=== PATIENT | male | born 1985 | race Caucasian/White ===

== ENCOUNTER 2022-07-24 13:25 | Inpatient (IN) | payer OTHER ==
--- NOTE | 2022-07-24 14:11 | ED ---
Psych HPI - General Chief Complaint: Psychiatric Symptoms Stated Complaint: Mental Health Time Seen by Provider: 07/24/22 13:47 Source: patient, family, RN notes reviewed Mode of arrival: ambulatory Limitations: no limitations - History of Present Illness Initial Comments: 37-year-old male presents emergency Department with family for psychiatric evaluation. Patient was unsure why he is being brought here. Patient does have ordered petition and which there multiple reasons complaints with family patient himself has no complaints denies any physical complaints denies any history of psychiatric disorders. Denies alcohol abuse does admit to marijuana use. - Related Data Home Medications Medication Instructions Recorded Confirmed No Known Home Medications 07/24/22 07/24/22 Allergies Allergy/AdvReac Type Severity Reaction Status Date / Time No Known Allergies Allergy Verified 07/24/22 15:22 Review of Systems ROS Statement: Those systems with pertinent positive or pertinent negative responses have been documented in the HPI. ROS Other: All systems not noted in ROS Statement are negative. Past Medical History Past Medical History: No Reported History History of Any Multi-Drug Resistant Organisms: None Reported Past Surgical History: No Surgical Hx Reported Past Psychological History: No Psychological Hx Reported Smoking Status: Never smoker Past Alcohol Use History: None Reported Past Drug Use History: None Reported General Exam Limitations: no limitations General appearance: alert, in no apparent distress Head exam: Present: atraumatic, normocephalic, normal inspection Eye exam: Present: normal appearance, PERRL, EOMI. Absent: scleral icterus, conjunctival injection, periorbital swelling ENT exam: Present: normal exam, normal oropharynx, mucous membranes moist Neck exam: Present: normal inspection, full ROM. Absent: tenderness, meningismus, lymphadenopathy Respiratory exam: Present: normal lung sounds bilaterally. Absent: respiratory distress, wheezes, rales, rhonchi, stridor Cardiovascular Exam: Present: regular rate, normal rhythm, normal heart sounds. Absent: systolic murmur, diastolic murmur, rubs, gallop, clicks GI/Abdominal exam: Present: soft, normal bowel sounds. Absent: distended, tenderness, guarding, rebound, rigid Neurological exam: Present: alert, oriented X3 Skin exam: Present: warm, dry, intact, normal color. Absent: rash Course Vital Signs 07/24/22 07/24/22 13:35 13:50 Temperature 97.5 F L 97.4 F L Pulse Rate 82 91 Respiratory 16 18 Rate Blood Pressure 101/76 116/78 O2 Sat by Pulse 96 100 Oximetry Medical Decision Making - Medical Decision Making Was pt. sent in by a medical professional or institution ([facility], SOFTWARE SUPPORT REPRESENTATIVE, urgent care, hospital, or half-way...) When possible be specific @ -No Did you speak to anyone other than the patient for history (EMS, parent, family, police, friend...)? What history was obtained from this source @ -Family who brought the patient in with court ordered petition Did you review nursing and triage notes (agree or disagree)? Why? @ -I reviewed and agree with nursing and triage notes Were old charts reviewed (outside hosp., previous admission, EMS record, old EKG, old radiological studies, urgent care reports/EKG's, half-way records)? Report findings @ -No old charts were reviewed Differential Diagnosis (chest pain, altered mental status, abdominal pain women, abdominal pain men, vaginal bleeding, weakness, fever, dyspnea, syncope, hea dache, dizziness, GI bleed, back pain, seizure, CVA, palpatations, mental health, musculoskeletal)? @ -Acute psychosis, schizophrenia, bipolar disorder EKG interpreted by me (3pts min.). @ -None X-rays interpreted by me (1pt min.). @ -None done CT interpreted by me (1pt min.). @ -None done U/S interpreted by me (1pt. min.). @ -None done What testing was considered but not performed or refused? (CT, X-rays, U/S, labs)? Why? @ -None What meds were considered but not given or refused? Why? @ -None Did you discuss the management of the patient with other professionals (professionals i.e. [facility], SOFTWARE SUPPORT REPRESENTATIVE, lab, RT, psych nurse, school social worker, burn nurse, teacher, commercial escrow officer, shoe parts caser)? Give summary @ -EPS to evaluate the patient and recommend inpatient treatment Was smoking cessation discussed for >3mins.? @ -No Was critical care preformed (if so, how long)? @ -No Were there social determinants of health that impacted care today? How? (Homelessness, low income, unemployed, alcoholism, drug addiction, transport ation, low edu. Level, literacy, decrease access to med. care, fci, rehab)? @ -No Was there de-escalation of care discussed even if they declined (Discuss DNR or withdrawal of care, Hospice)? DNR status @ -No What co-morbidities impacted this encounter? (DM, HTN, Smoking, COPD, CAD, Cancer, CVA, ARF, Chemo, Hep., AIDS, mental health diagnosis, sleep apnea, morbid obesity)? @ -None Was patient admitted / discharged? Hospital course, mention meds given and route, prescriptions, significant lab abnormalities, going to OR and other pertinent info. @ -Patient evaluated by EPS and recommend inpatient treatment psychiatric Undiagnosed new problem with uncertain prognosis? @ -No Drug Therapy requiring intensive monitoring for toxicity (Heparin, Nitro, Insulin, Cardizem)? @ -No Were any procedures done? @ -No Diagnosis/symptom? @ -Psychosis Acute, or Chronic, or Acute on Chronic? @ -Acute Uncomplicated (without systemic symptoms) or Complicated (systemic symptoms)? @ -uncomplicated Side effects of treatment? @ -No Exacerbation, Progression, or Severe Exacerbation? @ -No Poses a threat to life or bodily function? How? (Chest pain, [place], NH, pneumonia, PE, COPD, DKA, ARF, appy, cholecystitis, CVA, Diverticulitis, Homicidal, Suicidal, threat to staff... and all critical care pts) @ -No - Lab Data Lab Results 07/24/22 Range/Units 17:51 Coronavirus (PCR) Not Detected (Not Detectd) Disposition Clinical Impression: Acute psychosis Disposition: TRANSFER TO PSYCH HOSP/UNIT Time of Disposition: 07:01
[2022-07-24] MEDS ORDERED: LORazepam 1 MG TAB PO PRN (20:47)
[2022-07-24] MEDS ORDERED: MAG HYDROX/AL HYDROX/SIMETH 30 ML CUP PO PRN (20:47)
[2022-07-24] MEDS ORDERED: IBUPROFEN 600 MG TAB PO PRN (20:47)
[2022-07-24] MEDS ORDERED: HALOPERIDOL LACTATE 5 MG/ML 1 ML VIAL IM PRN (20:47)
[2022-07-24] MEDS ORDERED: LORazepam 2 MG/ML INJ IM PRN (20:47)
[2022-07-24] MEDS ORDERED: MAGNESIUM HYDROXIDE 2,400 MG/10 ML CUP PO PRN (20:47)
[2022-07-24] MEDS ORDERED: ACETAMINOPHEN TAB 325 MG TAB PO PRN (20:47)
[2022-07-24] MEDS ORDERED: haloperidoL 5 MG TAB PO PRN (20:47)
--- NOTE | 2022-07-25 02:57 | P.PN ---
Progress Note - Text Progress Note Date: 07/25/22 Attempted to see the patient in the mental health unit at 1999 on 07/24. The patient refused to be seen or be evaluated.
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
--- NOTE | 2022-07-25 23:32 | P.CONS ---
History of Present Illness - Reason for Consult Consult date: 07/25/22 - History of Present Illness The patient is a 37-year-old male who was brought to the emergency room by his family for psychiatric evaluation. The patient was petitioned by his family for multiple reasons. He was admitted to the mental health unit where he was seen and evaluated. Patient states that he does not know why he is in the mental health unit. He denied any physical complaints at time of interview however. The patient denied experiencing chest discomfort, short of breath, fever, chills, cough, nausea, vomiting, abdominal pain, diarrhea. He admits to recreational marijuana use but denied alcohol or additional substance use. Review of systems: Pertinent positives and negatives as discussed in HPI, a complete review of systems was performed and all other systems are negative. Physical examination: General: non toxic, no distress, appears at stated age, normal weight Derm: no unusual rashes/lesions, no unusual ecchymoses, warm, dry Head: atraumatic, normocephalic, symmetric Eyes: EOMI, no lid lag, anicteric sclera ENT: Nose and ears atraumatic, no thrush, no pharyngeal erythema Neck: trachea midline, supple Mouth: no lip lesion, mucus membranes moist Cardiovascular: S1S2 reg, no murmur, no edema Lungs: CTA bilateral, no rhonchi, no rales , no accessory muscle use Abdominal: soft, nontender to palpation, no guarding Ext: no gross muscle atrophy, no contractures, Neuro: No gross focal neuro deficits noted Psych: Alert, oriented, appropriate affect Assessment: Marijuana abuse Psychosis Imaging: None performed Data Review: Coronavirus PCR testing negative Plan: Advise on the importance of cessation for marijuana use Defer management of psychosis to primary psychiatry service Thank you for allowing us to participate in the care of this patient. We will follow peripherally. Do not hesitate to contact us with questions. Someone can be reached from the [facility] hospitalist group at all hours of the day at [phone]. Past Medical History Past Medical History: No Reported History History of Any Multi-Drug Resistant Organisms: None Reported Past Surgical History: No Surgical Hx Reported Past Psychological History: No Psychological Hx Reported Smoking Status: Never smoker Past Alcohol Use History: None Reported Past Drug Use History: None Reported - Past Family History Mother Family Medical History: COPD Medications and Allergies Home Medications Medication Instructions Recorded Confirmed Type No Known Home Medications 07/24/22 07/24/22 History Allergies Allergy/AdvReac Type Severity Reaction Status Date / Time No Known Allergies Allergy Verified 07/24/22 15:22
[2022-07-26] MEDS ORDERED: LORazepam 2 MG/ML INJ IM PRN (10:42)
[2022-07-26] MEDS ORDERED: LORazepam 1 MG TAB PO PRN (10:42)
--- NOTE | 2022-07-26 10:45 | P.PN ---
Progress Note - Text Progress Note Date: 07/26/22 Interval History: Patient was seen lying in his bed today and was approached by a global technical writer. Patient turned towards global technical writer acknowledged him. Classification Analyst introduced himself and asked the patient wanted to speak today in the office. Patient was appeared to be fairly cooperative however stated "no thank you Im ok". global technical writer again clarrified that it was psychiatric care and follow up and patient once again refused to speak to global technical writer politely and stated "No Im ok I really dont want to talk today" and then proceeded to turn away from global technical writer in his bed. he did not answer any other questions. Mental Status Exam: General Appearance: Patient appears to be laying in bed, wearing a hooded sweatshirt, stated age is alert, pleasant, poor eye contact. Behavior: [Patient is calmly in bed, pleasant. Speech: Patient's speech is fluent and nonpressured. [place] Mood/Affect: Unable to assess Suicidality/Homicidality: Unable to assess Perceptions: Unable to assess Though content/process: [place], poverty of content. Dismissive. Memory and concentration: Unable to assess Judgment and insight: Poor Assessment Psychosis unspecified, rule out substance-induced psychotic disorder Plan: -Patient continues to meet criteria for inpatient psychiatric admission for symptom stabilization and safety. Patient has signed adult voluntary form and medication consent and was placed in patient's chart. -Medications: Start paliperidone by mouth 3 mg daily at bedtime for psychosis. -When necessary Ativan and Haldol for agitation/aggression. -NRT - nicotine patch -SW on board for discharge planning. Encouraged the patient to participate in milieu. patient has signed AMA and will be up on 07/28. likely need to file for involuntary if patient is refusing medications and continues to demonstrate poor insiht and judgment along with psychotic features.
[2022-07-26] MEDS: PALIPERIDONE 3 MG TAB.ER.24 PO SCH (21:00)
--- NOTE | 2022-07-27 11:28 | P.PN ---
Progress Note - Text Progress Note Date: 07/27/22 Interval History: Patient was seen lying in his bed this morning and was approached by underwriter. Patient acknowledged him and was agreeable to speak to underwriter in the office today. Patient was endorsing paranoid delusions of being "framed for murder" and states that the police have also been "poisoning me". He states that he does not trust the police because he believes that they have been poisoning his drinks whenever he goes out. He believes that he is in the hospital because it is a "safe place" away from other people and does not believe that he needs mental health treatment. He refused paliperidone last night because he believes he does not need psychiatric treatment. He states that he slept fairly last night. He is denying any auditory or visual hallucinations. Denying any suicidal or homicidal ideations intent or plan. Mental Status Exam: General Appearance: Patient appears to be laying in bed, wearing a hooded sweatshirt, stated age is alert, pleasant, improving eye contact. Behavior: [Patient is calmly in bed, pleasant. Paranoid. Speech: Patient's speech is fluent and nonpressured. [place] Mood/Affect: He claims that his mood is "fine" affect is incongruent. Suicidality/Homicidality: Denies Perceptions: Denies. Though content/process: [place], endorsing paranoid delusions. Memory and concentration: Alert and oriented 3, fair attention span. Judgment and insight: Poor Assessment Psychosis unspecified, rule out substance-induced psychotic disorder Plan: -Patient continues to meet criteria for inpatient psychiatric admission for symptom stabilization and safety. Patient has signed adult voluntary form and medication consent and was placed in patient's chart. -Medications: paliperidone by mouth 3 mg daily at bedtime for psychosis. Patient is an refusing this. -When necessary Ativan and Haldol for agitation/aggression. -NRT - nicotine patch -SW on board for discharge planning. Encouraged the patient to participate in milieu. patient has signed AMA and will be up on 07/28. Will be filing 2 certificates and a petition today for involuntary process.
[2022-07-27] MEDS: PALIPERIDONE 3 MG TAB.ER.24 PO SCH (21:25)
--- NOTE | 2022-07-28 11:54 | P.PN ---
Progress Note - Text Progress Note Date: 07/28/22 Interval History: Patient was seen lying in his bed this morning and was approached by magnetic tape typewriter operator. Patient was agreeable to speak to magnetic tape typewriter operator however wanted to speak in his room today. He continues to demonstrate very poor insight and judgment. Continues to endorse paranoia about his mother "lying" on the petition to keep him in the hospital. He states that "it's all true and was followed by helicopters and people were trying to frame me for murder". He continues to endorse suspiciousness and also spoke about possibly eloping from the unit as he can "run really fast and get away from everybody". He kicked the door yesterday and almost eloped from the South wing of the unit. Patient received Haldol and Ativan by mouth yesterday as a when necessary. He is denying any depression or anxiety at this time. He continues to be impulsive and poor insight and judgment. Poor reality testing. We spoke more about the legal process and he continues to refuse medications and does not believe he needs mental health treatment. He states that he slept fairly last night. He is denying any aud itory or visual hallucinations. Denying any suicidal or homicidal ideations intent or plan. She remains uninterested in going to groups. Mental Status Exam: General Appearance: Patient appears to be laying in bed, wearing a hooded sweatshirt, stated age is alert, attempts to cooperate, improving eye contact. Behavior: [Patient is calmly in bed, pleasant. Paranoid. Speech: Patient's speech is fluent and nonpressured. [place] Mood/Affect: He claims that his mood is "fine" affect is incongruent. Suicidality/Homicidality: Denies Perceptions: Denies. Though content/process: [place], endorsing paranoid delusions. Memory and concentration: Alert and oriented 3, fair attention span. Judgment and insight: Poor Assessment Psychosis unspecified, rule out substance-induced psychotic disorder Plan: -Patient continues to meet criteria for inpatient psychiatric admission for symptom stabilization and safety. Patient has signed adult voluntary form and medication consent and was placed in patient's chart. -Medications: paliperidone by mouth 3 mg daily at bedtime for psychosis. Patient is an refusing this. -When necessary Ativan and Haldol for agitation/aggression. -NRT - nicotine patch -SW on board for discharge planning. Encouraged the patient to participate in milieu. patient has signed AMA and will be up on 07/28. filed for involuntary process on 07/27, currently awaiting deferral and court hearing date.
[2022-07-29] MEDS: PALIPERIDONE 3 MG TAB.ER.24 PO SCH ×2 (08:18→20:21)
--- NOTE | 2022-07-29 18:26 | P.PN ---
Progress Note - Text Progress Note Date: 07/29/22 Interval History: Patient was seen lying in his bed this morning and was approached by automotive service writer. Patient states that he believes that the mental health system is nefarious and trying to corner him. He reports that he would like to pursue a trial by jury. He states that he has been feeling threatened and that an FBI agent came to his home. Patient becomes guarded after stating this and says he does not want to discuss any further. He says "that's for the court ". He says that his mood is currently "really great ". He is denying any depression or anxiety at this time. He continues to be impulsive and poor insight and judgment. Poor reality testing. We spoke more about the legal process and he continues to refuse medications and does not believe he needs mental health treatment. He states that he slept fairly last night. He is denying any auditory or visual hallucinations. Denying any suicidal or homicidal ideations intent or plan. He remains uninterested in going to groups and says "I am an introvert ". Mental Status Exam: General Appearance: Patient appears to be laying in bed, wearing a hooded sweatshirt, stated age is alert, attempts to cooperate, improving eye contact. Behavior: Patient is calmly in bed, pleasant. Speech: Patient's speech is fluent and nonpressured. [place] Mood/Affect: He claims that his mood is "really great" affect is incongruent. Suicidality/Homicidality: Denies Perceptions: Denies. Though content/process: [place], endorsing paranoid delusions. Memory and concentration: Alert and oriented 3, fair attention span. Judgment and insight: Poor Assessment Psychosis unspecified, rule out substance-induced psychotic disorder Plan: -Patient continues to meet criteria for inpatient psychiatric admission for symptom stabilization and safety. -Medications: paliperidone by mouth 3 mg daily at bedtime for psychosis. Patient is refusing this. -When necessary Ativan and Haldol for agitation/aggression. -NRT - nicotine patch -SW on board for discharge planning. Encouraged the patient to participate in milieu. patient has signed AMA and will be up on 07/28. filed for involuntary process, currently awaiting deferral and court hearing date.
--- NOTE | 2022-07-30 14:48 | P.PN ---
Progress Note - Text Progress Note Date: 07/30/22 Interval History: Patient was seen lying in his bed this morning and was approached by television writer. He states that he is doing "really good ". He does not believe that he needs to be hospitalized and does not display any insight into condition including up to hospitalization. Patient insists that FBI was at his door and says that he does not want to discuss this further because "it will only look crazy ". He is denying any depression or anxiety at this time. Poor reality testing. He states that he does not believe he needs to be on any medications because he does not believe in medications. He states he does not take any medications at home. He states that he slept fairly last night. He reports fair appetite. He continues to be isolative in his room. He is denying any auditory or visual hallucinations. Denying any suicidal or homicidal ideations intent or plan. He denies other forms of paranoia currently. Mental Status Exam: General Appearance: Patient appears to be laying in bed, wearing a hooded sweatshirt, stated age is alert, attempts to cooperate, improving eye contact. Behavior: Patient is calmly in bed, pleasant. Speech: Patient's speech is fluent and nonpressured. [place] Mood/Affect: He claims that his mood is "really good" affect is elevated Suicidality/Homicidality: Denies Perceptions: Denies. Though content/process: [place], endorsing paranoid delusions. Memory and concentration: Alert and oriented 3, fair attention span. Judgment and insight: Poor Assessment Psychosis unspecified, rule out substance-induced psychotic disorder Plan: -Patient continues to meet criteria for inpatient psychiatric admission for symptom stabilization and safety. -Medications: paliperidone by mouth 3 mg daily at bedtime for psychosis. Patient is refusing this. -When necessary Ativan and Haldol for agitation/aggression. -NRT - nicotine patch -SW on board for discharge planning. Encouraged the patient to participate in milieu. patient has signed AMA and will be up on 07/28. filed for involuntary process, currently awaiting deferral and court hearing date.
[2022-07-30] MEDS: PALIPERIDONE 3 MG TAB.ER.24 PO SCH (21:16)
--- NOTE | 2022-07-31 11:16 | P.PN ---
Progress Note - Text Progress Note Date: 07/31/22 Interval History: Patient was seen lying in his bed this morning and was approached by sports writer. Patient got up out of bed and was agreeable to screenplay writer in his room today. He states that he has still been refusing medications and does not believe he needs psychiatric medications. He was fairly concrete, did not ask any questions. He continues to focus on discharge and have very poor insight and judgment. Continues to demonstrate poor reality testing. He states that he slept fairly last night, denied any complaints. We spoke about the legal process in speaking with his attorney at law which is okay with. He is denying any auditory or visual hallucinations. Denying any suicidal or homicidal ideations intent or plan. he remains uninterested in going to groups. Mental Status Exam: General Appearance: Patient appears to be laying in bed, wearing a hooded sweatshirt, stated age is alert, attempts to cooperate, fair eye contact. Behavior: [Patient is calmly in bed, pleasant. Paranoid, improving mildly Speech: Patient's speech is fluent and nonpressured. [place] Mood/Affect: He claims that his mood is "fine" affect is incongruent. Suicidality/Homicidality: Denies Perceptions: Denies. Though content/process: [place], endorsing paranoid delusions. Memory and concentration: Alert and oriented 3, fair attention span. Judgment and insight: Poor Assessment Psychosis unspecified, rule out substance-induced psychotic disorder Plan: -Patient continues to meet criteria for inpatient psychiatric admission for symptom stabilization and safety. Patient has signed adult voluntary form and medication consent and was placed in patient's chart. -Medications: paliperidone by mouth 3 mg daily at bedtime for psychosis. Patient is an refusing this. -When necessary Ativan and Haldol for agitation/aggression. -NRT - nicotine patch -SW on board for discharge planning. Encouraged the patient to participate in milieu. patient has signed AMA and will be up on 07/28. filed for involuntary process on 07/27, currently awaiting deferral set for today and court hearing date set for 08/02.
[2022-07-31] MEDS: PALIPERIDONE 3 MG TAB.ER.24 PO SCH (20:13)
--- NOTE | 2022-08-01 12:03 | P.PN ---
Progress Note - Text Progress Note Date: 08/01/22 Interval History: Patient was seen lying in his bed this morning and was approached by verse writer. Patient got up out of bed and was agreeable to brief writer in his room today. Patient has continuing to be refusing medications and does not believe he needs psychiatric medications. He states "I've never needed medications in my life". He continues to focus on discharge and today asks about getting a "secondary evaluation", he has very poor insight and judgment. Continues to demonstrate poor reality testing. We spoke about the court process for tomorrow which she is okay with. He states that he slept fairly last night, denied any complaints. He is denying any auditory or visual hallucinations. Denying any suicidal or homicidal ideations intent or plan. he remains uninterested in going to groups. Mental Status Exam: General Appearance: Patient appears to be laying in bed, wearing a street clothing, stated age is alert, attempts to cooperate, fair eye contact. Behavior: [Patient is calmly in bed, pleasant. Paranoid, improving mildly Speech: Patient's speech is fluent and nonpressured. [place] Mood/Affect: He claims that his mood is "fine" affect is incongruent. Suicidality/Homicidality: Denies Perceptions: Denies. Though content/process: [place], endorsing paranoid delusions. Memory and concentration: Alert and oriented 3, fair attention span. Judgment and insight: Poor Assessment Psychosis unspecified, rule out substance-induced psychotic disorder Plan: -Patient continues to meet criteria for inpatient psychiatric admission for symptom stabilization and safety. Patient has signed adult voluntary form and medication consent and was placed in patient's chart. -Medications: paliperidone by mouth 3 mg daily at bedtime for psychosis. Patient is an refusing this. -When necessary Ativan and Haldol for agitation/aggression. -NRT - nicotine patch -SW on board for discharge planning. Encouraged the patient to participate in milieu. patient has signed AMA and will be up on 07/28. filed for involuntary process on 07/27, court hearing date set for 08/02.
[2022-08-01] MEDS: PALIPERIDONE 3 MG TAB.ER.24 PO SCH (20:47)
--- NOTE | 2022-08-02 10:26 | P.PN ---
Progress Note - Text Progress Note Date: 08/02/22 Interval History: Patient was seen lying in his bed this morning and was approached by conventional underwriter to be interviewed at the bedside. Patient continues to isolate mainly in his room, continues to have a mildly disheveled appearance. He was fairly concrete and constricted. He continues to state that he does not need psychiatric medications at this time. Continues to be fairly superficial, he has very poor insight and judgment. Continues to demonstrate poor reality testing. We spoke for about the court process for tomorrow which she is okay with speaking with the cabinetmaker supervisor and his collections attorney today. He states that he slept fairly last night, denied any overnight complaints. He is denying any auditory or visual hallucinations. Denying any suicidal or homicidal ideations intent or plan. he remains uninterested in going to groups. Mental Status Exam: General Appearance: Patient appears to be laying in bed, wearing a street clothing, stated age is alert, attempts to cooperate, fair eye contact. Behavior: [Patient is calmly in bed, pleasant. Paranoid, improving mildly Speech: Patient's speech is fluent and nonpressured. [place] Mood/Affect: He claims that his mood is "ok" affect is incongruent. Suicidality/Homicidality: Denies Perceptions: Denies. Though content/process: [place], endorsing paranoid delusions. Memory and concentration: Alert and oriented 3, fair attention span. Judgment and insight: Poor Assessment Psychosis unspecified, rule out substance-induced psychotic disorder Plan: -Patient continues to meet criteria for inpatient psychiatric admission for symptom stabilization and safety. Patient has signed adult voluntary form and medication consent and was placed in patient's chart. -Medications: paliperidone by mouth 3 mg daily at bedtime for psychosis. Patient is refusing this. -When necessary Ativan and Haldol for agitation/aggression. -NRT - nicotine patch -SW on board for discharge planning. Encouraged the patient to participate in milieu. patient has signed AMA and will be up on 07/28. filed for involuntary process on 07/27, court hearing date set for 08/02.
[2022-08-03] MEDS: PALIPERIDONE 3 MG TAB.ER.24 PO SCH ×2 (04:31→21:00)
--- NOTE | 2022-08-03 13:03 | P.PN ---
Progress Note - Text Progress Note Date: 08/03/22 Interval History: Patient was seen lying in his bed this morning and was approached by gag writer to be interviewed at the bedside. Patient continues to isolate mainly in his room. He was directable during conversation. continues to have a mildly disheveled appearance. He continues to state that he does not need psychiatric medications at this time. We reflected back on the court hearing and states that he has not heard when he will get an independent evaluation yet. Continues to be fairly schmidt perficial, he has very poor insight and judgment. Continues to demonstrate poor reality testing. He states that he slept fairly last night, denied any overnight complaints. He is denying any auditory or visual hallucinations. Denying any suicidal or homicidal ideations intent or plan. he remains uninterested in going to groups. Mental Status Exam: General Appearance: Patient appears to be laying in bed, wearing a street clothing, stated age is alert, attempts to cooperate, fair eye contact. Behavior: [Patient is calmly in bed, pleasant. Paranoid, improving mildly Speech: Patient's speech is fluent and nonpressured. [place] Mood/Affect: He claims that his mood is "fine" affect is incongruent. Suicidality/Homicidality: Denies Perceptions: Denies. Though content/process: [place], endorsing paranoid delusions. Memory and concentration: Alert and oriented 3, fair attention span. Judgment and insight: Poor Assessment Psychosis unspecified, rule out substance-induced psychotic disorder Plan: -Patient continues to meet criteria for inpatient psychiatric admission for symptom stabilization and safety. Patient has signed adult voluntary form and medication consent and was placed in patient's chart. -Medications: paliperidone by mouth 3 mg daily at bedtime for psychosis. Patient is refusing this. -When necessary Ativan and Haldol for agitation/aggression. -NRT - nicotine patch -SW on board for discharge planning. Encouraged the patient to participate in milieu. patient has signed AMA and will be up on 07/28. filed for involuntary process on 07/27, court hearing date took place on 08/02 and patient requested an independent evaluation to be done,currently awaiting this.
--- NOTE | 2022-08-04 11:35 | P.PN ---
Progress Note - Text Progress Note Date: 08/04/22 Interval History: Patient was seen lying in his bed this morning and was approached by production underwriter to be interviewed at the bedside. Patient continues to isolate mainly in his room and appears to have poor hygiene and grooming. He was directable during conversation today. He continues to state that he does not need psychiatric medications at this time and does not require hospitalization. claims he does not know when he will be getting a secondary evaluation yet. Continues to be fairly superficial, he has very poor insight and judgment. Continues to demonstrate poor reality testing. He states that he slept fairly last night, denied any overnight complaints. He is denying any auditory or visual hallucinations. Denying any suicidal or homicidal ideations intent or plan. he remains uninterested in going to groups. Mental Status Exam: General Appearance: Patient appears to be laying in bed, wearing a street clothing, stated age is alert, attempts to cooperate, fair eye contact. Behavior: [Patient is calmly in bed, pleasant. Paranoid, improving mildly Speech: Patient's speech is fluent and nonpressured. [place] Mood/Affect: He claims that his mood is "alright" affect is incongruent and constricted Suicidality/Homicidality: Denies Perceptions: Denies. Though content/process: [place], endorsing paranoid delusions. Memory and concentration: Alert and oriented 3, fair attention span. Judgment and insight: Poor Assessment Psychosis unspecified, rule out substance-induced psychotic disorder Plan: -Patient continues to meet criteria for inpatient psychiatric admission for symptom stabilization and safety. Patient has signed adult voluntary form and medication consent and was placed in patient's chart. -Medications: paliperidone by mouth 3 mg daily at bedtime for psychosis. Patient is refusing this -When necessary Ativan and Haldol for agitation/aggression. -NRT - nicotine patch -SW on board for discharge planning. Encouraged the patient to participate in milieu. patient has signed AMA and will be up on 07/28. filed for involuntary process on 07/27, court hearing date took place on 08/02 and patient requested an independent evaluation to be done,currently awaiting this. next court hearing date set for this sunday
[2022-08-04] MEDS: PALIPERIDONE 3 MG TAB.ER.24 PO SCH (20:44)
[2022-08-05] MEDS: PALIPERIDONE 3 MG TAB.ER.24 PO SCH (20:14)
[2022-08-06] MEDS: PALIPERIDONE 3 MG TAB.ER.24 PO SCH (20:20)
--- NOTE | 2022-08-06 20:26 | P.PN ---
Progress Note - Text Progress Note Date: 08/05/22 Interval history: Patient was seen in his room after he finished showering and was directable and agreeable to speak with health technical writer. He claims he has "no idea why I'm here", feels he does not need to be admitted. He reports good mood, appears polite. He reports good sleep and appetite. At this time patient denies any suicidal or homicidal ideations intent or plan. Denies any auditory or visual hallucinations. He is refusing medications. Mental status exam: General Appearance: Patient appears to be stated age is alert, directable, and cooperative. Behavior: No agitated behavior. Patient is calm and directable. Speech: Patient's speech is fluent and non-pressured. Mood/Affect: Mood is improving mildly, affect is congruent and constricted. Suicidality/Homicidality: Patient denies having any suicidal or homicidal ideation intent or plan. Perceptions: Patient denies any auditory or visual hallucinations. Though content/process: There is no evidence of any delusional thought content and thought process is linear and goal-directed. Memory and concentration: AOX3, grossly intact for the purposes of this session Judgment and insight: fair Assessment/Plan: Continue with current diagnosis. Patient continues to meet criteria for inpatient psychiatric admission for symptom stabilization and safety. Patient will be maintained on current psychotropic medication regimen, however he is refusing medications. Monitor for medication compliance and for any psychotropic medication side effects. Will continue to monitor ongoing response to treatment. Encouraged participation in milieu.
--- NOTE | 2022-08-06 20:29 | P.PN ---
Progress Note - Text Progress Note Date: 08/06/22 Interval history: Patient was seen in the [facility] socializing with peers and appears polite on assessment. He claims he does not need mental health admission, is here because of a family member, was told he just needed to come here for blood work. He feels he does not need to be admitted. He reports good mood, sleep and appetite. He is polite and interacts respectfully with peers and staff. At this time patient denies any suicidal or homicidal ideation, intent or plan. Denies any auditory or visual hallucinations. He is refusing medications. Mental status exam: General Appearance: Patient appears to be stated age is alert, directable, and cooperative. Behavior: No agitated behavior. Patient is calm and directable. Speech: Patient's speech is fluent and non-pressured. Mood/Affect: Mood is improving mildly, affect is congruent and constricted. Suicidality/Homicidality: Patient denies having any suicidal or homicidal ideation intent or plan. Perceptions: Patient denies any auditory or visual hallucinations. Though content/process: There is no evidence of any delusional thought content and thought process is linear and goal-directed. Memory and concentration: AOX3, grossly intact for the purposes of this session Judgment and insight: fair Assessment/Plan: Continue with current diagnosis. Patient continues to meet criteria for inpatient psychiatric admission for symptom stabilization and safety. Patient will be maintained on current psychotropic medication regimen, however he is refusing medications. Monitor for medication compliance and for any psychotropic medication side effects. Will continue to monitor ongoing response to treatment. Encouraged participation in milieu.
--- NOTE | 2022-08-07 10:41 | P.PN ---
Progress Note - Text Progress Note Date: 08/07/22 Interval History: Patient was seen lying in his bed this morning and was approached by designer/writer to be interviewed at the bedside. Patient was just waking up from his sleep. He denies any complaints over the weekend and states that he slept okay last night. He states that he only goes to "the evening groups". Patient continues to isolate mainly in his room and appears to have poor hygiene and grooming. He was directable during conversation today. He continues to state that he does not need psychiatric medications at this time and does not require hospitalization. claims he does not know when he will be getting a secondary evaluation yet and we spoke about the court date set for sunday. Continues to be fairly superficial, he has very poor insight and judgment. Continues to demonstrate poor reality testing. He states that he slept fairly last night, denied any overnight complaints. He is denying any auditory or visual hallucinations. Denying any suicidal or homicidal ideations intent or plan. he remains uninterested in going to groups. Mental Status Exam: General Appearance: Patient appears to be laying in bed, wearing a street clothing, stated age is alert, attempts to cooperate, fair eye contact. Behavior: [Patient is calmly in bed, pleasant. Paranoid, improving mildly Speech: Patient's speech is fluent and nonpressured. [place] Mood/Affect: He claims that his mood is "alright" affect is incongruent and constricted Suicidality/Homicidality: Denies Perceptions: Denies. Though content/process: [place], endorsing paranoid delusions. Memory and concentration: Alert and oriented 3, fair attention span. Judgment and insight: Poor Assessment Psychosis unspecified, rule out substance-induced psychotic disorder Plan: -Patient continues to meet criteria for inpatient psychiatric admission for symptom stabilization and safety. Patient has signed adult voluntary form and medication consent and was placed in patient's chart. -Medications: paliperidone by mouth 3 mg daily at bedtime for psychosis. Patient is refusing this -When necessary Ativan and Haldol for agitation/aggression. -NRT - nicotine patch -SW on board for discharge planning. Encouraged the patient to participate in milieu. patient has signed AMA and will be up on 07/28. filed for involuntary pr ocess on 07/27, court hearing date took place on 08/02 and patient requested an independent evaluation to be done,currently awaiting this. next court hearing date set for this sunday
[2022-08-07] MEDS: PALIPERIDONE 3 MG TAB.ER.24 PO SCH (20:35)
--- NOTE | 2022-08-08 09:20 | P.PN ---
Progress Note - Text Progress Note Date: 08/08/22 Interval History: Patient was seen lying in his bed this morning and was approached by bid writer to be interviewed at the bedside. Patient was awoken from his sleep. He continues to state that he is doing "all right" and denied any depression or anxiety. He denies any complaints overnight and states that he slept okay last night. He states that he only goes to "the evening groups". Patient continues to isolate mainly in his room. He continues to minimize his need psychiatric medications at this time and does not require hospitalization. claims he does not know when he will be getting a secondary evaluation yet and we spoke about the court date set for tomorrow. Continues to be fairly superficial, he has very poor insight and judgment. Continues to demonstrate poor reality testing. He is denying any auditory or visual hallucinations. Denying any suicidal or homicidal ideations intent or plan. he remains uninterested in going to groups. Mental Status Exam: General Appearance: Patient appears to be laying in bed, wearing a street clothing, stated age is alert, attempts to cooperate, fair eye contact. Behavior: [Patient is calmly in bed, pleasant. Paranoid, improving mildly Speech: Patient's speech is fluent and nonpressured. [place] Mood/Affect: He claims that his mood is "ok" affect is incongruent and constricted Suicidality/Homicidality: Denies Perceptions: Denies. Though content/process: [place], endorsing paranoid delusions. Memory and concentration: Alert and oriented 3, fair attention span. Judgment and insight: Poor Assessment Psychosis unspecified, rule out substance-induced psychotic disorder Plan: -Patient continues to meet criteria for inpatient psychiatric admission for symptom stabilization and safety. Patient has signed adult voluntary form and medication consent and was placed in patient's chart. -Medications: paliperidone by mouth 3 mg daily at bedtime for psychosis. Patient is refusing this -When necessary Ativan and Haldol for agitation/aggression. -NRT - nicotine patch -SW on board for discharge planning. Encouraged the patient to participate in milieu. patient has signed AMA and will be up on 07/28. filed for involuntary process on 07/27, court hearing date took place on 08/02 and patient requested an independent evaluation to be done,currently awaiting this. next court hearing date set for this sunday
[2022-08-08] MEDS: PALIPERIDONE 3 MG TAB.ER.24 PO SCH (20:53)
--- NOTE | 2022-08-09 10:33 | P.PN ---
Progress Note - Text Progress Note Date: 08/09/22 Interval History: Patient was seen lying in his bed this morning and was approached by jingle writer to be interviewed at the bedside. Patient appeared to be sleeping and was awoken by jingle writer. He continues to be fairly concrete, attend and answer questions appropriately. He continues to state that he is doing ok denied any depression or anxiety. He denies any complaints overnight and states that he slept okay last night. Patient continues to isolate mainly in his room and is mainly visible in the evening time by staff. He continues to minimize his need psychiatric medications at this time has not been taking it and beleives he does not require hospitalization. we spoke about the secondary evaluation being scheduled for today. Continues to be fairly superficial, he has very poor insight and judgment. Continues to demonstrate poor reality testing. He is denying any auditory or visual hallucinations. Denying any suicidal or homicidal ideations intent or plan. he remains uninterested in going to groups. Mental Status Exam: General Appearance: Patient appears to be laying in bed, wearing a street clothing, stated age is alert, attempts to cooperate, fair eye contact. Behavior: [Patient is calmly in bed, superficial Speech: Patient's speech is fluent and nonpressured. [place] Mood/Affect: He claims that his mood is "fine" affect is incongruent and constricted Suicidality/Homicidality: Denies Perceptions: Denies. Though content/process: [place], endorsing paranoid delusions. Memory and concentration: Alert and oriented 3, fair attention span. Judgment and insight: Poor Assessment Psychosis unspecified, rule out substance-induced psychotic disorder Plan: -Patient continues to meet criteria for inpatient psychiatric admission for symptom stabilization and safety. Patient has signed adult voluntary form and medication consent and was placed in patient's chart. -Medications: paliperidone by mouth 3 mg daily at bedtime for psychosis. Patient is refusing this -When necessary Ativan and Haldol for agitation/aggression. -NRT - nicotine patch -SW on board for discharge planning. Encouraged the patient to participate in milieu. patient has signed AMA and will be up on 07/28. filed for involuntary process on 07/27, court hearing date took place on 08/02 and patient requested an independent evaluation to be done, is apparently scheduled to be done later on today.
[2022-08-09] MEDS: PALIPERIDONE 3 MG TAB.ER.24 PO SCH (22:33)
--- NOTE | 2022-08-10 10:17 | P.PN ---
Progress Note - Text Progress Note Date: 08/10/22 Interval History: Patient was seen lying in his bed this morning and was approached by communications writer to be interviewed at the bedside. Patient claims that he had a independent evaluation yesterday and states "I just answered some questions" in the states that he was not explained anything further. He continues to be fairly concrete and also vague, he did however answer questions appropriately. He continues to state that he is doing ok denied any depression or anxiety. He denies any complaints overnight and states that he slept okay last night. Patient continues to isolate mainly in his room and is mainly visible in the evening time by staff. Continues to be fairly superficial, he has very poor insight and judgment. Continues to demonstrate poor reality testing. He is denying any auditory or visual hallucinations. Denying any suicidal or homicidal ideations intent or plan. he remains uninterested in going to groups. Mental Status Exam: General Appearance: Patient appears to be laying in bed, wearing a street clothing, stated age is alert, attempts to cooperate, fair eye contact. Behavior: [Patient is calmly in bed, superficial Speech: Patient's speech is fluent and nonpressured. [place] Mood/Affect: He claims that his mood is "ok" affect is incongruent and constricted Suicidality/Homicidality: Denies Perceptions: Denies. Though content/process: [place], endorsing paranoid delusions. Memory and concentration: Alert and oriented 3, fair attention span. Judgment and insight: Poor Assessment: Psychosis unspecified, rule out substance-induced psychotic disorder Plan: -Patient continues to meet criteria for inpatient psychiatric admission for symptom stabilization and safety. Patient has signed adult voluntary form and medication consent and was placed in patient's chart. -Medications: paliperidone by mouth 3 mg daily at bedtime for psychosis. Patient is refusing this -When necessary Ativan and Haldol for agitation/aggression. -NRT - nicotine patch -SW on board for discharge planning. Encouraged the patient to participate in milieu. patient has signed AMA and will be up on 07/28. filed for involuntary process on 07/27, court hearing date took place on 08/02 and patient requested an independent evaluation which was completed on 08/09. currently awaiting next hearing date scheduled for 08/16.
[2022-08-10] MEDS: PALIPERIDONE 3 MG TAB.ER.24 PO SCH (21:09)
--- NOTE | 2022-08-11 13:52 | P.PN ---
Progress Note - Text Progress Note Date: 08/11/22 Subjective/subjective data: Patient was laying in bed in a dark room Patient was easily arousable Patient states that he is doing fine and it has any other questions He stated that he has a court date coming up soon When asked if he wanted to discuss anything in particular patient's no However when I tried to leave patient then acted surprised as to why we are not having this conversation He was reminded that he reported decline to talk anymore Patient then agreed that he does not want to talk anymore and went back to sleep Mental Status Exam: General Appearance: Patient appears to be laying in bed, stated age is alert, attempts to cooperate, fair eye contact. Behavior: [Patient is calmly in bed, superficial Speech: Patient's speech is fluent and nonpressured. [place] Mood/Affect: He claims that his mood is "ok" affect is incongruent and constricted Suicidality/Homicidality: Denies Perceptions: Denies. Though content/process: [place], endorsing paranoid delusions. Memory and concentration: Alert and oriented 3, fair attention span. Judgment and insight: Poor Assessment: Psychosis unspecified, rule out substance-induced psychotic disorder Plan: -Patient continues to meet criteria for inpatient psychiatric admission for symptom stabilization and safety. Patient has signed adult voluntary form and medication consent and was placed in patient's chart. -Medications: paliperidone by mouth 3 mg daily at bedtime for psychosis. She has refused to take this before -When necessary Ativan and Haldol for agitation/aggression. -NRT - nicotine patch -SW on board for discharge planning. Encouraged the patient to participate in milieu. patient has signed AMA and will be up on 07/28. filed for involuntary process on 07/27, court hearing date took place on 08/02 and patient requested an independent evaluation which was completed on 08/09. currently awaiting next hearing date scheduled for 08/16.
[2022-08-11] MEDS: PALIPERIDONE 3 MG TAB.ER.24 PO SCH (21:57)
--- NOTE | 2022-08-12 15:23 | P.PN ---
Subjective Progress Note Date: 08/12/22 Principal diagnosis: Assessment: Psychosis unspecified, rule out substance-induced psychotic disorder Subjective/objective data: The assessment on Sunday was very similar to the previous days discussion Patient again did not want to discuss any specific issues or problems and he declined to talk about any specific issues He is aware that he has a court date coming up Mental Status Exam: General Appearance: Patient appears to be laying in bed, stated age is alert, attempts to cooperate, fair eye contact. Behavior: [Patient is calmly in bed, superficial Speech: Patient's speech is fluent and nonpressured. [place] Mood/Affect: He claims that his mood is "ok" affect is incongruent and constricted Suicidality/Homicidality: Denies Perceptions: Denies. Though content/process: [place], endorsing paranoid delusions. Memory and concentration: Alert and oriented 3, fair attention span. Judgment and insight: Poor Assessment: Psychosis unspecified, rule out substance-induced psychotic disorder Plan: -Patient continues to meet criteria for inpatient psychiatric admission for symptom stabilization and safety. Patient has signed adult voluntary form and medication consent and was placed in patient's chart. -Medications: paliperidone by mouth 3 mg daily at bedtime for psychosis. She has refused to take this before -When necessary Ativan and Haldol for agitation/aggression. -NRT - nicotine patch -SW on board for discharge planning. Encouraged the patient to participate in milieu. patient has signed AMA and will be up on 07/28. filed for involuntary process on 07/27, court hearing date took place on 08/02 and patient requested an independent evaluation which was completed on 08/09. currently awaiting next hearing date scheduled for 08/16. Chris Salazar M.D. 08/12/2022 Objective - Vital Signs Vital signs: Vital Signs Temp 98.2 F 08/12/22 06:00 Pulse 71 08/12/22 06:00 Resp 16 08/12/22 06:00 BP 100/68 08/12/22 06:00 Pulse Ox 98 08/12/22 06:00 FiO2
[2022-08-12] MEDS: PALIPERIDONE 3 MG TAB.ER.24 PO SCH (22:07)
--- NOTE | 2022-08-13 11:59 | P.PN ---
Subjective Progress Note Date: 08/13/22 Principal diagnosis: Assessment: Psychosis unspecified, rule out substance-induced psychotic disorder Subjective/objective data: The assessment on Sunday was very similar to the previous days discussion Patient again did not want to discuss any specific issues or problems and he declined to talk about any specific issues He is aware that he has a court date coming up Patient reports that he is not much of her medication management and does not even take an aspirin and prefers not to take any medications He states that does things that he has any problems and does not need any treatment Mental Status Exam: General Appearance: Patient appears to be laying in bed, stated age is alert, attempts to cooperate, fair eye contact. Behavior: [Patient is calmly in bed, superficial Speech: Patient's speech is fluent and nonpressured. [place] Mood/Affect: He claims that his mood is "ok" affect is incongruent and constricted Suicidality/Homicidality: Denies Perceptions: Denies. Though content/process: [place], endorsing paranoid delusions. Memory and concentration: Alert and oriented 3, fair attention span. Judgment and insight: Poor Assessment: Psychosis unspecified, rule out substance-induced psychotic disorder Plan: -Patient continues to meet criteria for inpatient psychiatric admission for symptom stabilization and safety. Patient has signed adult voluntary form and medication consent and was placed in patient's chart. -Medications: paliperidone by mouth 3 mg daily at bedtime for psychosis. She has refused to take this before -When necessary Ativan and Haldol for agitation/aggression. -NRT - nicotine patch -SW on board for discharge planning. Encouraged the patient to participate in milieu. patient has signed AMA and will be up on 07/28. filed for involuntary process on 07/27, court hearing date took place on 08/02 and patient requested an independent evaluation which was completed on 08/09. currently awaiting next hearing date scheduled for 08/16. Chris Salazar M.D. 08/13/2022 Objective - Vital Signs Vital signs: Vital Signs Temp 97.1 F L 08/13/22 06:35 Pulse 63 08/13/22 06:35 Resp 14 08/13/22 06:35 BP 92/57 08/13/22 06:35 Pulse Ox 98 08/12/22 06:00 FiO2 Intake & Output 08/12/22 08/13/22 08/13/22 18:59 06:59 18:59 Weight 72.4 kg
[2022-08-13] MEDS: PALIPERIDONE 3 MG TAB.ER.24 PO SCH (21:37)
--- NOTE | 2022-08-14 10:24 | P.PN ---
Progress Note - Text Progress Note Date: 08/14/22 Interval History: Patient was seen lying in his bed this morning and was approached by play writer to be interviewed at the bedside. Patient appeared to have poor hygiene and grooming today. He states he will try to shower sometime today. Patient claims that he has not heard anything further about his independent evaluation, we spoke about the upcoming court date scheduled for Sunday. He continues to be fairly concrete and also vague, he did however answer questions appropriately. He continues to state that he is doing ok denied any depression or anxiety. He denies any complaints overnight and states that he slept fairly last night. Patient continues to isolate mainly in his room and is mainly visible in the evening time by staff. Continues to be fairly superficial, he has very poor insight and judgment. Continues to demonstrate poor reality testing. He is denying any auditory or visual hallucinations. Denying any suicidal or homicidal ideations intent or plan. he remains uninterested in going to groups. Mental Status Exam: General Appearance: Patient appears to be laying in bed, wearing a street clothing, stated age is alert, attempts to cooperate, fair eye contact. Behavior: [Patient is calmly in bed, superficial Speech: Patient's speech is fluent and nonpressured. [place] Mood/Affect: He claims that his mood is "alright" affect is incongruent and constricted Suicidality/Homicidality: Denies Perceptions: Denies. Though content/process: [place], endorsing paranoid delusions. Memory and concentration: Alert and oriented 3, fair attention span. Judgment and insight: Poor Assessment: Psychosis unspecified, rule out substance-induced psychotic disorder Plan: -Patient continues to meet criteria for inpatient psychiatric admission for symptom stabilization and safety. Patient has signed adult voluntary form and medication consent and was placed in patient's chart. -Medications: paliperidone by mouth 3 mg daily at bedtime for psychosis. Patient is refusing this -When necessary Ativan and Haldol for agitation/aggression. -NRT - nicotine patch -SW on board for discharge planning. Encouraged the patient to participate in milieu. patient has signed AMA and will be up on 07/28. filed for involuntary process on 07/27, court hearing date took place on 08/02 and patient requested an independent evaluation which was completed on 08/09. currently awaiting next hearing date scheduled for 08/16.
[2022-08-14] MEDS: PALIPERIDONE 3 MG TAB.ER.24 PO SCH (20:49)
--- NOTE | 2022-08-15 10:14 | P.PN ---
Progress Note - Text Progress Note Date: 08/15/22 Interval History: Patient was seen lying in his bed this morning and was approached by headline writer to be interviewed at the bedside. patients room had a foul odor coming from it. he claims that he has been washing clothes and showering hover looks unkempt. Patient appeared to have poor hygiene and grooming today we spoke about the upcoming court date scheduled for tomorrow. He continues to be fairly concrete and also vague, he did however answer questions appropriately. He continues to state that he is doing ok. He denies any complaints overnight and states that he slept fairly last night. Patient continues to isolate mainly in his room and is mainly visible in the evening time by staff. Continues to be fairly superficial, he has very poor insight and judgment. Continues to demonstrate poor reality testing. He is denying any auditory or visual hallucinations. Denying any suicidal or homicidal ideations intent or plan. he remains uninterested in going to groups. Mental Status Exam: General Appearance: Patient appears to be laying in bed, wearing a street clothing, stated age is alert, attempts to cooperate, fair eye contact. Behavior: [Patient is calmly in bed, superficial Speech: Patient's speech is fluent and nonpressured. [place] Mood/Affect: He claims that his mood is "ok" affect is incongruent and constricted Suicidality/Homicidality: Denies Perceptions: Denies. Though content/process: [place], endorsing paranoid delusions. Memory and concentration: Alert and oriented 3, fair attention span. Judgment and insight: Poor Assessment: Psychosis unspecified, rule out substance-induced psychotic disorder Plan: -Patient continues to meet criteria for inpatient psychiatric admission for symptom stabilization and safety. Patient has signed adult voluntary form and medication consent and was placed in patient's chart. -Medications: paliperidone by mouth 3 mg daily at bedtime for psychosis. Patient is refusing this -When necessary Ativan and Haldol for agitation/aggression. -NRT - nicotine patch -SW on board for discharge planning. Encouraged the patient to participate in milieu. patient has signed AMA and will be up on 07/28. filed for involuntary process on 07/27, court hearing date took place on 08/02 and patient requested an independent evaluation which was completed on 08/09. currently awaiting next hearing date scheduled for 08/16 at 930 am
[2022-08-15] MEDS: PALIPERIDONE 3 MG TAB.ER.24 PO SCH (20:54)
[2022-08-16 07:12] VITALS: RESP 16
--- NOTE | 2022-08-16 11:22 | P.PN ---
Progress Note - Text Progress Note Date: 08/16/22 Interval History: Patient was seen sitting in his bed this morning and was approached by group underwriter to be interviewed at the bedside. Patient apparently had consented to the order yesterday after reading the independent evaluation report. Patient did not proceed with court this morning. He took the paliperidone by mouth last night. He claims that he is doing a bit better today and claims that "she didn't really do much for me". He is agreeable to continue taking it on the unit. He continues to be fairly superficial with group underwriter and continues to have a poor judgment and insight. He continues to state that he is doing ok. We spoke about transitioning him on to the long-acting injection however patient was refusing today. He wanted to continue taking the pills. He denies any complaints overnight and states that he slept fairly last night. Poor hygiene and grooming. Continues to be fairly superficial, he has very poor insight and judgment. He is denying any auditory or visual hallucinations. Denying any suicidal or homicidal ideations intent or plan. Mental Status Exam: General Appearance: Patient appears to be laying in bed, wearing a street clothing, stated age is alert, attempts to cooperate, fair eye contact. Behavior: [Patient is calmly in bed, superficial Speech: Patient's speech is fluent and nonpressured. [place] Mood/Affect: He claims that his mood is "ok" affect is congruent and constricted, improving mildly Suicidality/Homicidality: Denies Perceptions: Denies. Though content/process: [place], endorsing paranoid delusions. Memory and concentration: Alert and oriented 3, fair attention span. Judgment and insight: Chronically Poor Assessment: schizophreniform Plan: -Patient continues to meet criteria for inpatient psychiatric admission for symptom stabilization and safety. Patient has signed adult voluntary form and medication consent and was placed in patient's chart. -Medications: Increase paliperidone by mouth 3 mg bid at bedtime for psychosis. will need to transition pt onto [facility] starting tomorrow to ensure compliance. -When necessary Ativan and Haldol for agitation/aggression. -NRT - nicotine patch -SW on board for discharge planning. Encouraged the patient to participate in milieu. patient has signed AMA and will be up on 07/28. filed for involuntary process on 07/27, court hearing date took place on 08/02 and patient requested an independent evaluation which was completed on 08/09. 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 will need to transition patient onto [facility] to help ensure compliance.
[2022-08-16] MEDS: PALIPERIDONE 3 MG TAB.ER.24 PO SCH ×2 (12:18→21:04)
[2022-08-17] MEDS: PALIPERIDONE 3 MG TAB.ER.24 PO SCH (08:44)
--- NOTE | 2022-08-17 10:23 | P.PN ---
Progress Note - Text Progress Note Date: 08/17/22 Interval History: Patient was seen sitting in his bed this morning and was approached by song writer to be interviewed at the bedside. Patient claims that he just finished taking a shower earlier. He appears to have improvement in his hygiene and grooming overall and claims that he also washes clothing's. She claims that he has been speaking with his mom however was fairly vague about what they talked about. He claims that he is okay with having the injection and we spoke more about that today to help ensure compliance. He also spoke more about discharge planning to observe him overnight and plan for likely tomorrow. He claims that he has been taking the medications and not reporting any side effects. States that he slept fairly last night. He has mildly improving insight and judgment however remains fairly superficial and limited. He is denying any auditory or visual hallucinations. Denying any suicidal or homicidal ideations intent or plan. Mental Status Exam: General Appearance: Patient appears to be laying in bed, wearing a street clothing, stated age is alert, attempts to cooperate, fair eye contact. Improving hygiene and grooming. Behavior: Patient is calmly in bed, superficial improving mildly Speech: Patient's speech is fluent and nonpressured. [place] Mood/Affect: He claims that his mood is "okay" affect is congruent and improving mildly Suicidality/Homicidality: Denies Perceptions: Denies Though content/process: [place], not endorsing paranoia today. No delusions. Memory and concentration: Alert and oriented 3, fair attention span. Judgment and insight: Chronically Poor, improving mildly Assessment: Schizophreniform Plan: -Patient continues to meet criteria for inpatient psychiatric admission for symptom stabilization and safety. Patient has signed adult voluntary form and medication consent and was placed in patient's chart. -Medications: decrease paliperidone to 3 mg at bedtime for psychosis for one more day then discontinue. ordered Perseris SQ 120 mg today to ensure compliance, next dose will be due in one month on 09/14/22 -When necessary Ativan and Haldol for agitation/aggression -NRT - nicotine patch -SW on board for discharge planning. Encouraged the patient to participate in milieu. patient has signed AMA and will be up on 07/28. filed for involuntary process on 07/27, court hearing date took place on 08/02 and patient requested an independent evaluation which was completed on 08/09. patient ended up consenting to order with his tax attorney on 08/15. will need to transition patient onto LEMUS to help ensure compliance ordered for today and will likely discharge tomorrow. song writer also spoke with patients mother over the phone Makenna who asked several questions, we discussed his care and treatment going forward and diagnoses. Mother was concerned about patients possible exposure to HIV and also that he refused blood work earlier on. we will reorder blood work for today and also HIV, nurse will ask patient to sign consent for it.
[2022-08-17 13:08] LABS: Basophils % (A) 0 %; Eosinophils # (A) 0.2 k/uL (0-0.7); Eosinophils % (A) 3 %; HCT 42.5 % (39.0-53.0); HGB 14.5 gm/dL (13.0-17.5); Lymphocytes # (A) 1.8 k/uL (1.0-4.8); Lymphocytes % (A) 26 %; MCH 30.3 pg (25.0-35.0); MCHC 34.1 g/dL (31.0-37.0); MCV 88.9 fL (80.0-100.0); Monocytes # (A) 0.5 k/uL (0-1.0); Monocytes % (A) 7 %; Neutrophils # (A) 4.3 k/uL (1.3-7.7); Neutrophils % (A) 63 %; Platelet Count 204 k/uL (150-450); RBC 4.78 m/uL (4.30-5.90); RDW 13.5 % (11.5-15.5); WBC 6.9 k/uL (3.8-10.6)
[2022-08-17 13:17] LABS: ALT 29 U/L (4-49); AST 25 U/L (17-59); African American GFR (CKD) >90 (>60 ml/min/1.73 sqM); Albumin 4.4 g/dL (3.5-5.0); Alkaline Phosphatase 60 U/L (38-126); Anion Gap 9 mmol/L; Blood Urea Nitrogen 17 mg/dL (9-20); Calcium 9.5 mg/dL (8.4-10.2); Carbon Dioxide 32 mmol/L (22-30); Chloride 100 mmol/L (98-107); Glucose 87 mg/dL (74-99); Non-African American GFR(CKD) >90 (>60 ml/min/1.73 sqM); Potassium 4.5 mmol/L (3.5-5.1); Sodium 141 mmol/L (137-145); Total Bilirubin 0.3 mg/dL (0.2-1.3)
[2022-08-17] MEDS ORDERED: risperiDONE 120 MG SYR (NO COST) PHARMACY STOCK SQ ONE (14:00)
[2022-08-17] MEDS ORDERED: PALIPERIDONE 3 MG TAB.ER.24 PO ONE (21:00)
[2022-08-18 07:04] VITALS: BP 97/55; PULSE 68; TEMP 98.6
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
[2022-08-18 13:18] VITALS: BMI 22.8
[2022-08-19 03:43] LABS: HIV 2 AB Non-Reactive (Non-Reactive); HIV AB P24 Non-Reactive (Non-Reactive); HIV P24 AG Non-Reactive (Non-Reactive)
== END 2022-08-18 14:43 | disposition home or self-care (01) | DRG 885 ==
LOC: SUPCPDRO 13:25 → EC 13:25 → 3MHU 20:17
PROVIDERS: ADMIT Psychiatry & Neurology Psychiatry; ATTEND Psychiatry & Neurology Psychiatry
DX: F20.81 Schizophreniform disorder (principal); F12.10 Cannabis abuse, uncomplicated; F43.10 Post-traumatic stress disorder, unspecified; Z91.148 Patient's other noncompliance with medication regimen for other reason; Z91.199 Patient's noncompliance with other medical treatment and regimen due to unspecified reason; Z20.822 Contact with and (suspected) exposure to COVID-19; Z28.21 Immunization not carried out because of patient refusal; Z71.51 Drug abuse counseling and surveillance of drug abuser; F10.10 Alcohol abuse, uncomplicated; R21 Rash and other nonspecific skin eruption
CPT/HCPCS: 80053; 82075; 84443; 85025; 86780; 87390; 87635; 99285